=== PATIENT | female | born 1940 | race Caucasian/White ===

== ENCOUNTER 2017-02-20 08:18 | Emergency (ER) | payer MEDICARE ==
[2017-02-20 08:46] VITALS: BP 173/77
--- NOTE | 2017-02-20 08:55 | UC ---
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 Negative: Fever, Chills, Pleuritic Chest Pain, Wheezing, Hemoptysis, Dizziness, Calf Swelling, Edema, URI, Nasal Congestion, Hoarseness, Sinus Discomfort - Allergies/Home Medications Allergies/Adverse Reactions: Allergies Allergy/AdvReac Type Severity Reaction Status Date / Time Atorvastatin [From Lipitor] Allergy Unknown REDNESS IN Verified 02/20/17 08:28 FACE Diltiazem Allergy Unknown SEVERE Verified 02/20/17 08:28 MUCLE ACHES Triamterene Allergy Unknown Unknown Verified 02/20/17 08:28 Reaction Details Levofloxacin [From Levaquin] Allergy Unknown Verified 02/20/17 08:28 Reaction Details Nitroglycerin Allergy Tachycardia Verified 02/20/17 08:28 Oxycodone Allergy SEVERE Verified 02/20/17 08:28 VOMITING Home Medications: Home Medications Ibuprofen TAB* [Advil TAB*] 200 mg PO Q6H PRN 02/20/17 [History Confirmed ] PMH/Surg Hx/FS Hx/Imm Hx Previously Healthy: No - LUPUS Cardiovascular History: Hypertension, Congestive Heart Failure, Other - valvular heart disease Other Cardiovascular History: valvular heart disease Respiratory History: Bronchitis - Surgical History Surgical History: Yes Surgery Procedure, Year, and Place: Hysterectomy, . Cesarian section, . Choleycystectomy, , [facility]. Urethral stretch procedure, . FACE (ABOVE EYEBROW & NOSE) AND LEG- SKIN CANCER REMOVED. HX LUPUS - Family History Known Family History: Positive: Cardiac Disease, Hypertension, Other - strong FHx of LUPUS - Social History Alcohol Use: None Substance Use Type: None Smoking Status (MU): Former Smoker Have You Smoked in the Last Year: No When Did the Patient Quit Smoking/Using Tobacco: 30 YRS AGO - Immunization History Most Recent Influenza Vaccination: DOES NOT TAKE IT. Most Recent Tetanus Shot: allergy to Most Recent Pneumonia Vaccination: 2009 Review of Systems Constitutional: Negative Skin: Negative Eyes: Negative ENT: Nasal Discharge, Sinus Congestion Respiratory: Shortness Of Breath, Cough Cardiovascular: Negative Gastrointestinal: Abdominal Pain - with cough Genitourinary: Negative Motor: Negative Neurovascular: Negative Musculoskeletal: Arthralgia, Myalgia, Other: - chronic neuropathic pain x 3 yrs Neurological: Negative Psychological: Negative Is Patient Immunocompromised?: No All Other Systems Reviewed And Are Negative: Yes Physical Exam Triage Information Reviewed: Yes Appearance: Well-Appearing, No Pain Distress, Well-Nourished Vital Signs: Initial Vital Signs Temp 98.2 F 02/20/17 08:32 Pulse 74 02/20/17 08:32 Resp 16 02/20/17 08:32 BP 173/77 02/20/17 08:32 Pulse Ox 98 02/20/17 08:32 Vital Signs Reviewed: Yes Eyes: Positive: Conjunctiva Clear ENT: Positive: Normal ENT inspection Neck: Positive: Supple, Nontender, No Lymphadenopathy Respiratory: Positive: Lungs clear, Normal breath sounds, No respiratory distress, No accessory muscle use Cardiovascular: Positive: RRR, No Murmur Abdomen Description: Positive: Nontender, No Organomegaly Musculoskeletal: Positive: ROM Intact, No Edema Neurological: Positive: Alert Psychological Exam: Normal Skin Exam: Normal UC Diagnostic Evaluation - Laboratory O2 Sat by Pulse Oximetry: 98 - normal/not hypoxic - Radiology Xray Interpretation: No Acute Changes - HYPERINFLATION, CONSISTENT WITH COPD. NO ACTIVE CARDIOPULMONARY DISEASE Radiology Interpretation Completed By: Radiologist Respiratory Course/Dx - Differential Dx/Diagnosis Provider Diagnoses: acute bronchitis Discharge - Discharge Plan Condition: Stable Disposition: HOME Patient Education Materials: Acute Bronchitis (ED) Referrals: Joy Childers MD [Primary Care Provider] - 4 Days (if not better) Additional Instructions: recheck for new or worsening symptoms
--- NOTE | 2017-02-20 09:16 | RAD ---
HISTORY: Cough COMPARISONS: March 26, 2016 VIEWS: 4: Frontal dual-energy and lateral views of the chest. FINDINGS: CARDIOMEDIASTINAL SILHOUETTE: The cardiomediastinal silhouette is normal. LÓPEZ: The lópez are normal. PLEURA: The costophrenic angles are sharp. No pleural abnormalities are noted. LUNG PARENCHYMA: There is hyperinflation with flattening of the diaphragm and expansion of the AP diameter of the chest. ABDOMEN: The upper abdomen is clear. There is no subphrenic gas. BONES AND SOFT TISSUES: Degenerative changes are noted along the spine. OTHER: None. IMPRESSION: HYPERINFLATION, CONSISTENT WITH COPD. NO ACTIVE CARDIOPULMONARY DISEASE.
== END 2017-02-20 09:38 | disposition home or self-care (01) ==
LOC: UCCORT 08:18
DX: J20.9 Acute bronchitis, unspecified (principal)
CPT/HCPCS: 71020; 99212; G0463

== ENCOUNTER 2017-10-05 14:50 | Emergency (ER) | payer MEDICARE ==
[2017-10-05 15:14] VITALS: BP 132/62
[2017-10-05] MEDS ORDERED: Albuterol 2.5 MG/3 ML NEB.SOL* (0.083%) INH ONE (15:17)
--- NOTE | 2017-10-05 15:17 | UC ---
General HPI - HPI Summary HPI Summary: cough since last pm. denies cp, sob, wheezing and fever. denies hx lung disease. was dx with bronchitis yesterday. he has asthma and is on an antibiotic. - History of Current Complaint Chief Complaint: UCRespiratory Stated Complaint: COUGH Time Seen by Provider: 10/05/17 15:04 Hx Obtained From: Patient Onset/Duration: Gradual Onset Aggravating: nothing Alleviating: nothing Associated Signs & Symptoms: Positive: Cough - Allergy/Home Medications Allergies/Adverse Reactions: Allergies Allergy/AdvReac Type Severity Reaction Status Date / Time oxycodone Allergy Severe Vomiting Verified 10/05/17 15:02 atorvastatin [From Lipitor] Allergy See Comment Verified 10/05/17 15:02 diltiazem Allergy Muscle Ache Verified 10/05/17 15:02 levofloxacin [From Levaquin] Allergy Unknown Verified 10/05/17 15:02 Reaction Details nitroglycerin Allergy Tachycardia Verified 10/05/17 15:02 triamterene Allergy Unknown Verified 10/05/17 15:02 Reaction Details Home Medications: Home Medications Omeprazole CAP* [Prilosec CAP* 20 MG] 1 cap DAILY 10/05/17 [History Confirmed ] Potassium Chlor TAB* [Klor Con ER TAB 10 MEQ*] 10 meq WEEKLY PRN 10/05/17 [ History Confirmed 10/05/17] PMH/Surg Hx/FS Hx/Imm Hx - Additional Past Medical History Additional PMH: Lupus, skin CA, chronic pain Endocrine History: Dyslipidemia Cardiovascular History: Cardiac Disease, Hypertension - Surgical History Surgical History: Yes Surgery Procedure, Year, and Place: Hysterectomy, . Cesarian section, . Choleycystectomy, , [facility]. Urethral stretch procedure, . FACE (ABOVE EYEBROW & NOSE) AND LEG- SKIN CANCER REMOVED. HX LUPUS - Family History Known Family History: Positive: Cardiac Disease, Hypertension, Other - strong FHx of LUPUS - Social History Occupation: Retired Lives: With Family Alcohol Use: None Substance Use Type: None Smoking Status (MU): Former Smoker Have You Smoked in the Last Year: No When Did the Patient Quit Smoking/Using Tobacco: 30 YRS AGO - Immunization History Most Recent Influenza Vaccination: DOES NOT TAKE IT. Most Recent Tetanus Shot: allergy to Most Recent Pneumonia Vaccination: 2009 Vaccination Up to Date: Yes Review of Systems Constitutional: Negative Skin: Negative Eyes: Negative ENT: Negative Respiratory: Cough Cardiovascular: Negative Gastrointestinal: Negative Genitourinary: Negative Motor: Negative Neurovascular: Negative Musculoskeletal: Other: - chronic pain Neurological: Negative Psychological: Negative Is Patient Immunocompromised?: No All Other Systems Reviewed And Are Negative: Yes Physical Exam Triage Information Reviewed: Yes Appearance: Well-Appearing Vital Signs Reviewed: Yes Eyes: Positive: Conjunctiva Clear ENT: Positive: Pharyngeal erythema, Nasal congestion, Nasal drainage - clear, TMs normal Neck: Positive: Supple, Nontender, No Lymphadenopathy, Other: - no jvd Respiratory: Positive: Lungs clear, Decreased breath sounds, Other: - bronchospastic cough Cardiovascular: Positive: RRR, No Murmur Abdomen Description: Positive: Nontender, No Organomegaly, Soft Bowel Sounds: Positive: Present Musculoskeletal: Positive: ROM Intact Neurological: Positive: Alert Psychological: Positive: Age Appropriate Behavior Skin Exam: Normal Re-Evaluation - Re-Evaluation Second Eval Re-Evaluation Time: 15:50 Change: Improved - less cough, aeration improved Course/Dx - Course Course Of Treatment: pt improved with bronchodiloator so will resume that. given hx of comorbidities and spouse currenly ill, will cover with a zpak. - Differential Dx - Multi-Symptom Provider Diagnoses: bronchitis. bronchospasm Discharge - Sign-Out/Discharge Documenting (check all that apply): Discharge/Admit/Transfer - Discharge Plan Condition: Stable Disposition: HOME Prescriptions: Azithromycin TAB* [Zithromax TAB (Z-JAMIL) 250 mg #6 tabs] 2 tab PO .TODAY, THEN 1 DAILY #1 jamil Patient Education Materials: Acute Bronchitis (ED), Bronchospasm (ED) Referrals: Joy Childers MD [Primary Care Provider] - 5 Days Additional Instructions: use the albuterol inhaler 2 puffs every 6 hours - Billing Disposition and Condition Condition: STABLE Disposition: HOME
[2017-10-05] MEDS ORDERED: Albuterol HFA INHALER* 8 gm MDI INH ONE (15:52)
== END 2017-10-05 16:18 | disposition home or self-care (01) ==
LOC: UCCORT 14:50
DX: J40 Bronchitis, not specified as acute or chronic (principal); J98.01 Acute bronchospasm; G89.29 Other chronic pain; I10 Essential (primary) hypertension; M32.9 Systemic lupus erythematosus, unspecified; Z88.1 Allergy status to other antibiotic agents; Z88.5 Allergy status to narcotic agent; Z88.7 Allergy status to serum and vaccine; Z88.8 Allergy status to other drugs, medicaments and biological substances; Z87.891 Personal history of nicotine dependence
CPT/HCPCS: 99213; A9270-GY; G0463

== ENCOUNTER 2018-03-10 14:50 | Emergency (ER) | payer MEDICARE ==
[2018-03-10 15:07] VITALS: BP 192/89
--- NOTE | 2018-03-10 16:10 | UC ---
Respiratory Complaint HPI - HPI Summary HPI Summary: Per office services associate "PRODUCTIVE COUGH, CHEST CONGESTION, STATES SHE CAN FEEL THAT SHE IS RATTLING WHEN SHES BREATHING X3 DAYS HEADACHE TODAY THAT ACHES INTO EYES AND TEETH" -She has some wheezing. Denies history of COPD or asthma. She's never needed inhalers except for an acute illness such as today's in the past. She does not smoke. Denies fevers. She does have some mild dysuria. She does have history of UTIs and sees a specialist for this. She has mild pain over her face. - History of Current Complaint Chief Complaint: UCGeneralIllness Stated Complaint: COUGH,CHEST CONGESTION Time Seen by Provider: 03/10/18 16:03 Pain Intensity: 5 - Allergies/Home Medications Allergies/Adverse Reactions: Allergies Allergy/AdvReac Type Severity Reaction Status Date / Time oxycodone Allergy Severe Vomiting Verified 10/05/17 15:02 atorvastatin [From Lipitor] Allergy See Comment Verified 10/05/17 15:02 diltiazem Allergy Muscle Ache Verified 10/05/17 15:02 levofloxacin [From Levaquin] Allergy Unknown Verified 10/05/17 15:02 Reaction Details nitroglycerin Allergy Tachycardia Verified 10/05/17 15:02 triamterene Allergy Unknown Verified 10/05/17 15:02 Reaction Details Home Medications: Home Medications Duloxetine HCl 30 mg PO DAILY 03/10/18 [History Confirmed 03/10/18] Guaifenesin/Dextromethorphan [Robitussin Iyfgk-Pfusd-Xbww Dm] 1 each PO DAILY [History Confirmed 03/10/18] PMH/Surg Hx/FS Hx/Imm Hx Previously Healthy: Yes - Surgical History Surgical History: Yes Surgery Procedure, Year, and Place: Hysterectomy, . Cesarian section, . Choleycystectomy, , [facility]. Urethral stretch procedure, . FACE (ABOVE EYEBROW & NOSE) AND LEG- SKIN CANCER REMOVED. HX LUPUS - Family History Known Family History: Positive: Cardiac Disease, Hypertension, Other - strong FHx of LUPUS - Social History Alcohol Use: None Substance Use Type: None Smoking Status (MU): Former Smoker Have You Smoked in the Last Year: No When Did the Patient Quit Smoking/Using Tobacco: 30 YRS AGO - Immunization History Most Recent Influenza Vaccination: DOES NOT TAKE IT. Most Recent Tetanus Shot: allergy to Most Recent Pneumonia Vaccination: 2010 Vaccination Up to Date: Yes Review of Systems Constitutional: Fatigue Skin: Negative Eyes: Negative ENT: Nasal Discharge, Sinus Congestion, Sinus Pain/Tenderness Respiratory: Cough Cardiovascular: Negative Gastrointestinal: Negative Genitourinary: Dysuria Motor: Negative Neurovascular: Negative Musculoskeletal: Negative Neurological: Negative Psychological: Negative Is Patient Immunocompromised?: No All Other Systems Reviewed And Are Negative: Yes Physical Exam Triage Information Reviewed: Yes Appearance: Well-Appearing, No Pain Distress, Well-Nourished - Uses walker Vital Signs: Initial Vital Signs Temp 99.3 F 03/10/18 14:59 Pulse 75 03/10/18 14:59 Resp 18 03/10/18 14:59 BP 192/89 03/10/18 14:59 Pulse Ox 98 03/10/18 14:59 Vital Signs Reviewed: Yes Eye Exam: Normal ENT: Positive: Nasal congestion, Nasal drainage, TMs normal. Negative: Sinus tenderness Neck exam: Normal Neck: Positive: Supple, Nontender, No Lymphadenopathy Respiratory: Positive: No respiratory distress, No accessory muscle use, Decreased breath sounds, Wheezing. Negative: Crackles, Rhonchi, Stridor Cardiovascular: Positive: RRR Abdomen Description: Positive: Nontender, Soft Neurological Exam: Normal Psychological Exam: Normal Skin Exam: Normal UC Diagnostic Evaluation - Laboratory O2 Sat by Pulse Oximetry: 98 Respiratory Course/Dx - Course Course Of Treatment: BP elevated bc she is sick and doesnt feel well. UA dip b/ c of her request, + 1 LE. minimal mild dysuria. follows with . await cx. she is being treated w/ amox for resp sx. amox and alb for bronchitis - Differential Dx/Diagnosis Differential Diagnosis/HQI/PQRI: Bronchitis, Sinusitis, Other - dysuria Provider Diagnoses: Bronchitis, dysuria Discharge - Sign-Out/Discharge Documenting (check all that apply): Patient Departure All imaging exams completed and their final reports reviewed: No Studies - Discharge Plan Condition: Stable Disposition: HOME Prescriptions: Albuterol HFA INHALER* [Ventolin HFA Inhaler*] 2 puff INH Q4H PRN #1 mdi PRN Reason: Cough Amoxicillin PO (*) [Amoxicillin 875 MG (*)] 875 mg PO BID #20 tab Patient Education Materials: Acute Bronchitis (ED) Referrals: Joy Childers MD [Primary Care Provider] - Additional Instructions: -Make sure to take a probiotic daily while on antibiotics to help prevent a potential complication of antibiotic use called c diff. Some well known brands that can be found OTC are florastor, align and SoapBox Soaps. Make sure to complete the entire prescription unless advised otherwise by your health care provider. -Urine is not obviously positive for an infection, but it will be sent for a culture. You can call for the results in 2-3 days. The amoxicillin would likely cover a UTI if you do have one. - Billing Disposition and Condition Condition: STABLE Disposition: Home
--- NOTE | 2018-03-12 08:10 | UC ---
- Progress Note Progress Note: Urine culture final report with strep group B Patient on amoxicillin Sensitivity usually not done routinely. No change Discharge - Sign-Out/Discharge Documenting (check all that apply): Post-Discharge Follow Up All imaging exams completed and their final reports reviewed: No Studies - Discharge Plan Condition: Stable Disposition: HOME Prescriptions: Albuterol HFA INHALER* [Ventolin HFA Inhaler*] 2 puff INH Q4H PRN #1 mdi PRN Reason: Cough Amoxicillin PO (*) [Amoxicillin 875 MG (*)] 875 mg PO BID #20 tab Patient Education Materials: Acute Bronchitis (ED) Referrals: Joy Childers MD [Primary Care Provider] - Additional Instructions: -Make sure to take a probiotic daily while on antibiotics to help prevent a potential complication of antibiotic use called c diff. Some well known brands that can be found OTC are florastor, align and [employer]. Make sure to complete the entire prescription unless advised otherwise by your health care provider. -Urine is not obviously positive for an infection, but it will be sent for a culture. You can call for the results in 2-3 days. The amoxicillin would likely cover a UTI if you do have one. - Billing Disposition and Condition Condition: STABLE Disposition: Home
== END 2018-03-10 16:39 | disposition home or self-care (01) ==
LOC: UCCORT 14:50
DX: J40 Bronchitis, not specified as acute or chronic (principal); R30.0 Dysuria; Z79.2 Long term (current) use of antibiotics; Z85.828 Personal history of other malignant neoplasm of skin; Z87.891 Personal history of nicotine dependence; Z87.440 Personal history of urinary (tract) infections; Z88.1 Allergy status to other antibiotic agents; Z88.5 Allergy status to narcotic agent; Z88.8 Allergy status to other drugs, medicaments and biological substances
CPT/HCPCS: 81003; 87077; 87086; 99212; G0463

== ENCOUNTER 2018-03-26 12:49 | Emergency (ER) | payer MEDICARE ==
--- OUTSIDE RECORDS SUMMARY | 2018-03-26 13:18 | XMS REPORT | Continuity of Care Document ---
:1940 External Reference #:[id number] Author Name Amrit Quinn M.D. Address [address] [place] [address] Care Team Providers Name Role Phone Joy Childers M.D. Primary Care Physician Unavailable Payers Type Date Identification Numbers Payment Provider Subscriber Policy Number: [id number] Medicare - [facility] Brenda Carias PayID: [id number] [address] [place] [address] Policy Number: [id number] [facility] Brenda Carias PayID: [id number] [address] [place] [address] Advance Directives Description No Information Available Problems Date Description Provider Status Onset: Basal cell carcinoma of skin Active Onset: Seasonal allergy Active Onset: Simple renal cyst Active Onset: Essential hypertension Active Onset: Calcaneal spur Active Onset: Arthritis Active Onset: 08/25/2017 Squamous blepharitis Amrit Quinn M.D. Active Onset: 07/23/2015 Vitreous degeneration Sherri Mcginnis O.D. Active Onset: 07/23/2015 Combined form of senile cataract Sherri Mcginnis O.D. Active Onset: 03/24/2015 Nuclear senile cataract Sherri Mcginnis O.D. Active Onset: 03/24/2015 Angular blepharoconjunctivitis Sherri Mcginnis O.D. 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 dryness & irritation Erythromycin 09/15 Active Ointment 5mg/GM 2Tube Apply to [facility] /2017 s all four Arleo, lids at M.D. bedtime for 2 weeks, then discontinue . Can use as needed for Blepharitis flare ups Labetalol HCL Active Tablets 100mg Unknown /0000 Verapamil HCL ER Active Caps ER 120mg Unknown /0000 24HR Calcium 500 Active Tablets 500-250-2 500 MG bid Unknown 0000 00mg-mg-U nit Duloxetine HCL Active Caps DR 20mg twice a day Unknown /0000 Part Amlodipine Active Tablets 2.5mg every day Unknown Besylate /0000 Omeprazole Active Capsules 10mg Unknown /0000 DR Tums Active Chewtabs 500mg 1 by mouth Unknown /0000 every day Aspirin Active Chewtabs 81mg Unknown /0000 Artificial Tears Active Solution 0.1-0.3% as needed Unknown /0000 Erythromycin 07/22 Hx Ointment 5mg/GM 1Tube apply thin H10.523 Sherri Crabtree /2015 strip to [place], - all four O.D. 08/24 margins x every night Erythromycin 03/24 Hx Ointment 5mg/GM 1Tube apply thin H10.523 Sherri Crabtree /2014 strip to [place] - all four O.D. 07/21 margins x every night for 3 weeks Hydrochlorothiazid 00/00 Hx Capsules 12.5mg Unknown e /0000 - 07/21 Gabapentin 00/00 Hx Capsules 100mg Unknown /0000 - 03/23 Morphine Sulfate 00 Hx Caps ER 10mg Unknown ER /0000 24HR - 12/22 Senna Hx Capsules 8.6mg twice a day Unknown /0000 - 08/24 Prednisone Hx Tablets 50mg 1 dose per Unknown / month - 08/23 Gabapentin Hx Unknown / - 08/23 Amoxicillin/Clavul Hx Tablets 875-125mg Unknown anate Potassium /0000 - 08/24 Immunizations Description No Information Available Vital Signs Description No Information Available Results Description No Information Available Procedures Date Code Description Status 08/25/2017 89794 Est Patient Comprehensive Exam Completed 01/23/2016 10942 Est Patient Comprehensive Exam Completed 07/23/2015 52646 Est Patient Comprehensive Exam Completed 03/24/2015 24310 Est Patient Intermediate Exam Completed 07/22/2014 86826 Est Patient Comprehensive Exam Completed 12/10/2013 48610 Est Patient Comprehensive Exam Completed 07/10/2012 57822 Est Patient Comprehensive Exam Completed 02/10/2011 23714 Est Patient Intermediate Exam Completed 03/12/2010 17385 Determination Of Refractive State Completed 03/12/2010 21079 Est Patient Comprehensive Exam Completed 01/07/2009 34358 Est Patient Comprehensive Exam Completed 10/19/2006 59449 Est Patient Intermediate Exam Completed 01/24/2006 39456 Est Patient Comprehensive Exam Completed 01/06/2006 98622 Est Patient Intermediate Exam Completed 02/12/2004 40141 Determination Of Refractive State Completed 02/12/2004 06883 Est Patient Comprehensive Exam Completed Encounters Type Date Location Provider Dx Diagnosis Office Visit 02/17/2011 Sherri Parra 372.30 Conjunctivitis Unspec 10:10a edel COREY O.D. Office Visit 11/29/2007 Daniel Parra, 373.00 Blepharitis Unspec 10:45a edel COREY M.D. Plan of Treatment 03/24/2018 - Amrit Quinn M.D.H25.813 Combined forms of age-related cataract , bilateralComments:Smoking can increase the risk of developing or worsening any eye related disease, as well as affect your overall health. If you are a smoker, we strongly recommend that you quit.If you are not a smoker, we strongly recommend that you do not start. You have been diagnosed with cataracts. If you are happy with your vision as it is now, then we will see you at your next scheduled appointment. If you feel like your vision is getting worse before your scheduled appointment, please call [facility] at [phone].Follow up:6 Month Follow Up Diagnostic Refraction You can expect to have your eyes dilated at your next visit. If Dr. Quinn orders any additional testing, it may require extra time. We recommend that you bring sunglasses, as dilation drops often make you light sensitive until they wear off. We always recommendyou bring someone to drive you home if you are uncomfortable driving with your eyes dilated. If you have any questions before your next visit, feel free to call our office at .B85.690 Vitreous degeneration, bilateralComments:You have a Posterior Vitreous Detachment. If you have any changes in your floaters or flashing lights, please contact this office.
[2018-03-26 13:26] VITALS: BP 179/92
--- NOTE | 2018-03-26 13:47 | UC ---
Complaint Female HPI - HPI Summary HPI Summary: 77 year old female with onset of suprapubic "pressure", dysuria, frequency, and urgency this morning. Denies fever, chills, back/flank pain, nausea, vomiting, hematuria, or vaginal discharge. - History Of Current Complaint Chief Complaint: UCGU Stated Complaint: URINARY Time Seen by Provider: 03/26/18 13:16 Hx Obtained From: Patient Onset/Duration: Gradual Onset, Lasting Hours Severity Currently: Moderate Pain Intensity: 5 Character: Burning Aggravating Factor(s): Urination Alleviating Factor(s): Nothing Associated Signs And Symptoms: Negative: Fever, Back Pain, Vaginal Bleeding/ Discharge, Nausea, Vomiting(# Of Episodes =) - Allergies/Home Medications Allergies/Adverse Reactions: Allergies Allergy/AdvReac Type Severity Reaction Status Date / Time atorvastatin [From Lipitor] Allergy See Comment Verified 03/26/18 13:22 diltiazem Allergy Muscle Ache Verified 03/26/18 13:22 levofloxacin [From Levaquin] Allergy Unknown Verified 03/26/18 13:22 Reaction Details nitroglycerin Allergy Tachycardia Verified 03/26/18 13:22 triamterene Allergy Unknown Verified 03/26/18 13:22 Reaction Details oxycodone AdvReac Severe Vomiting Verified 03/26/18 13:22 PMH/Surg Hx/FS Hx/Imm Hx - Additional Past Medical History Additional PMH: SLE, fibromyalgia Endocrine History: Dyslipidemia Cardiovascular History: Cardiac Disease, Hypertension, Other - tachy arrythmia - Surgical History Surgical History: Yes Surgery Procedure, Year, and Place: Hysterectomy, . Cesarian section, . Choleycystectomy, , [facility]. Urethral stretch procedure, . FACE (ABOVE EYEBROW & NOSE) AND LEG- SKIN CANCER REMOVED. HX LUPUS - Family History Known Family History: Positive: Cardiac Disease, Hypertension, Other - strong FHx of LUPUS - Social History Occupation: Retired Lives: With Family Alcohol Use: None Substance Use Type: None Smoking Status (MU): Former Smoker Have You Smoked in the Last Year: No When Did the Patient Quit Smoking/Using Tobacco: ~1984 - Immunization History Most Recent Influenza Vaccination: DOES NOT TAKE IT. Most Recent Tetanus Shot: allergy to Most Recent Pneumonia Vaccination: 2009 Vaccination Up to Date: Yes Review of Systems All Other Systems Reviewed And Are Negative: Yes Constitutional: Positive: Negative Gastrointestinal: Positive: Abdominal Pain - Suprapubic Genitourinary: Positive: Dysuria, Frequency, Urgency Is Patient Immunocompromised?: No Physical Exam Triage Information Reviewed: Yes Appearance: No Pain Distress, Well-Nourished, Ill-Appearing - Chronically Vital Signs: Initial Vital Signs Temp 98.5 F 03/26/18 13:20 Pulse 76 03/26/18 13:20 Resp 18 03/26/18 13:20 BP 179/92 03/26/18 13:20 Pulse Ox 97 03/26/18 13:20 Vital Signs Reviewed: Yes Respiratory: Positive: Lungs clear, Normal breath sounds, No respiratory distress Cardiovascular: Positive: RRR, No Murmur Abdomen Description: Positive: No Organomegaly, Soft, Other: - Mild suprapubic tenderness. Negative: CVA Tenderness (R), CVA Tenderness (L), Distended, Guarding Neurological: Positive: Alert Skin Exam: Normal Diagnostics - Laboratory Diagnostic Studies Completed/Ordered: POC UA 2+ protein, 3+ blood, 3+ leukocyte , urine culture pending Complaint Female Dx - Course Course Of Treatment: 77 year old female with onset of suprapubic "pressure", dysuria, frequency, and urgency this morning. Afebrile. POC UA shows 2+ protein , 3+ blood, 3+ leukocyte esterase. Urine culture pending. Will start 5 day course nitrofuratoin BID pending culture results. She is to follow up with PCP in 5 days if symptoms persist. Warning symptoms reviewed. Verbalizes understanding and agrees with POC. - Differential Dx/Diagnosis Provider Diagnoses: UTi Discharge - Sign-Out/Discharge Documenting (check all that apply): Patient Departure All imaging exams completed and their final reports reviewed: No Studies - Discharge Plan Condition: Stable Disposition: HOME Prescriptions: Nitrofurantoin Monohyd/M-Cryst [Macrobid 100 mg Capsule] 100 mg PO BID #10 cap Patient Education Materials: Urinary Tract Infection in Women (ED) Referrals: Joy Childers MD [Primary Care Provider] - 5 Days (If no improvement in symptoms ) Additional Instructions: Your urine test performed in the clinic today is suggestive of a urinary tract infection. We will send the urine for culture to see what bacteria grow out and to make sure the antibiotic you were prescribed is appropriate. This test will take 48-72 hours. We will contact you if there is any need to change your treatment plan. Start nitrofurantoin 1 tab twice a day for 5 days. Drink plenty of fluids. Be sure to use the bathroom frequently and to completely empty your bladder with each void. Follow up with your primary care provider in 5 days if symptoms do not improve. Seek immediate medical attention in the emergency room if you develop fever greater than 100.5 F, worsening abdominal pain, persistent vomiting, or any worsening of symptoms. - Billing Disposition and Condition Condition: STABLE Disposition: Home - Attestation Statements Provider Attestation: Per institutional requirements, I have reviewed the chart, however, I was not consulted specifically or made aware of this patient by the midlevel provider. I did not personally evaluate, interact with , or disposition this patient.
--- NOTE | 2018-03-28 18:55 | UC ---
- Progress Note Progress Note: + Strep Group B On Macrobid await culture no change marionj 03/28/2018 Discharge - Sign-Out/Discharge Documenting (check all that apply): Post-Discharge Follow Up All imaging exams completed and their final reports reviewed: No Studies - Discharge Plan Condition: Stable Disposition: HOME Prescriptions: Nitrofurantoin Monohyd/M-Cryst [Macrobid 100 mg Capsule] 100 mg PO BID #10 cap Patient Education Materials: Urinary Tract Infection in Women (ED) Referrals: Joy Childers MD [Primary Care Provider] - 5 Days (If no improvement in symptoms ) Additional Instructions: Your urine test performed in the clinic today is suggestive of a urinary tract infection. We will send the urine for culture to see what bacteria grow out and to make sure the antibiotic you were prescribed is appropriate. This test will take 48-72 hours. We will contact you if there is any need to change your treatment plan. Start nitrofurantoin 1 tab twice a day for 5 days. Drink plenty of fluids. Be sure to use the bathroom frequently and to completely empty your bladder with each void. Follow up with your primary care provider in 5 days if symptoms do not improve. Seek immediate medical attention in the emergency room if you develop fever greater than 100.5 F, worsening abdominal pain, persistent vomiting, or any worsening of symptoms. - Billing Disposition and Condition Condition: STABLE Disposition: Home
--- NOTE | 2018-03-29 06:59 | UC ---
- Progress Note Progress Note: prelim urine + citrobacter, strep Group B Pt on Macrobid await sensitivity no change amando 03/29/18 Discharge - Sign-Out/Discharge Documenting (check all that apply): Post-Discharge Follow Up All imaging exams completed and their final reports reviewed: No Studies - Discharge Plan Condition: Stable Disposition: HOME Prescriptions: Nitrofurantoin Monohyd/M-Cryst [Macrobid 100 mg Capsule] 100 mg PO BID #10 cap Patient Education Materials: Urinary Tract Infection in Women (ED) Referrals: Joy Childers MD [Primary Care Provider] - 5 Days (If no improvement in symptoms ) Additional Instructions: Your urine test performed in the clinic today is suggestive of a urinary tract infection. We will send the urine for culture to see what bacteria grow out and to make sure the antibiotic you were prescribed is appropriate. This test will take 48-72 hours. We will contact you if there is any need to change your treatment plan. Start nitrofurantoin 1 tab twice a day for 5 days. Drink plenty of fluids. Be sure to use the bathroom frequently and to completely empty your bladder with each void. Follow up with your primary care provider in 5 days if symptoms do not improve. Seek immediate medical attention in the emergency room if you develop fever greater than 100.5 F, worsening abdominal pain, persistent vomiting, or any worsening of symptoms. - Billing Disposition and Condition Condition: STABLE Disposition: Home
== END 2018-03-26 13:59 | disposition home or self-care (01) ==
LOC: UCCORT 12:49
DX: N39.0 Urinary tract infection, site not specified (principal); B96.89 Other specified bacterial agents as the cause of diseases classified elsewhere; B95.1 Streptococcus, group B, as the cause of diseases classified elsewhere; Z88.5 Allergy status to narcotic agent; Z88.8 Allergy status to other drugs, medicaments and biological substances; I10 Essential (primary) hypertension; Z85.828 Personal history of other malignant neoplasm of skin; Z87.891 Personal history of nicotine dependence
CPT/HCPCS: 81003; 87077; 87086; 87186; 99212; G0463

== ENCOUNTER 2018-05-18 08:50 | Emergency (ER) | payer MEDICARE ==
[2018-05-18 10:31] VITALS: BP 150/76
--- NOTE | 2018-05-18 11:02 | ED ---
GI/ HPI - HPI Summary HPI Summary: 77 yr old female with the complaint of dysuria, frequency of urination, supra pubic pressure. Onset of symptoms was several days ago. She was treated for uti with macrobid in March, but not completely better. no NV. No fever. Symptoms are moderate. - History of Current Complaint Chief Complaint: UCGU Time Seen by Provider: 05/18/18 10:30 Stated Complaint: URINARY Pain Intensity: 4 - Allergy/Home Medications Allergies/Adverse Reactions: Allergies Allergy/AdvReac Type Severity Reaction Status Date / Time atorvastatin [From Lipitor] Allergy See Comment Verified 05/18/18 10:24 diltiazem Allergy Muscle Ache Verified 05/18/18 10:24 levofloxacin [From Levaquin] Allergy Unknown Verified 05/18/18 10:24 Reaction Details nitroglycerin Allergy Tachycardia Verified 05/18/18 10:24 triamterene Allergy Unknown Verified 05/18/18 10:24 Reaction Details oxycodone AdvReac Severe Vomiting Verified 05/18/18 10:24 PMH/Surg Hx/FS Hx/Imm Hx Endocrine/Hematology History: Reports: Hx Systemic Lupus Erythematosus Denies: Hx Diabetes Cardiovascular History: Reports: Hx Angina, Hx Hypercholesterolemia, Hx Hypertension, Hx Valvular Heart Disease - TR, Aortic Sclerosis, Other Cardiovascular Problems/Disorders - PROLAPSED HEART VALVE Denies: Hx Coronary Artery Disease, Hx Myocardial Infarction, Hx Pacemaker/ ICD Respiratory History: Reports: Hx Asthma Denies: Hx Chronic Obstructive Pulmonary Disease (COPD) GI History: Reports: Hx Gastroesophageal Reflux Disease, Hx Hiatal Hernia History: Denies: Hx Dialysis, Hx Renal Disease Musculoskeletal History: Reports: Hx Back Problems - lumbar radiculopathy, Hx Bursitis Denies: Hx Osteoporosis Sensory History: Reports: Hx Cataracts, Hx Contacts or Glasses Denies: Hx Hearing Aid Opthamlomology History: Reports: Hx Cataracts, Hx Contacts or Glasses Neurological History: Reports: Other Neuro Impairments/Disorders - Lupus Psychiatric History: Denies: Hx Panic Disorder - Cancer History Cancer Type, Location and Year: skin cancer - Surgical History Surgery Procedure, Year, and Place: Hysterectomy, . Cesarian section, . Choleycystectomy, , [facility]. Urethral stretch procedure, . FACE (ABOVE EYEBROW & NOSE) AND LEG- SKIN CANCER REMOVED. HX LUPUS Hx Anesthesia Reactions: No Infectious Disease History: No Infectious Disease History: Denies: Traveled Outside the [place] in Last 30 Days - Family History Known Family History: Positive: Cardiac Disease, Hypertension, Other - strong FHx of LUPUS - Social History Alcohol Use: None Substance Use Type: Reports: None Smoking Status (MU): Former Smoker Have You Smoked in the Last Year: No Review of Systems Constitutional: Negative Positive: dysuria, frequency All Other Systems Reviewed And Are Negative: Yes Physical Exam Triage Information Reviewed: Yes Vital Signs On Initial Exam: Initial Vitals Temp Pulse Resp BP Pulse Ox 97.8 F 71 16 150/76 96 05/18/18 10:25 05/18/18 10:25 05/18/18 10:25 05/18/18 10:25 05/18/18 10:25 Vital Signs Reviewed: Yes Appearance: Positive: Well-Appearing, No Pain Distress Skin: Positive: Warm, Skin Color Reflects Adequate Perfusion Head/Face: Positive: Normal Head/Face Inspection Eyes: Positive: EOMI ENT: Positive: Normal ENT inspection Neck: Positive: Nontender Respiratory/Lung Sounds: Positive: Clear to Auscultation, Breath Sounds Present Cardiovascular: Positive: RRR. Negative: Murmur Abdomen Description: Positive: Nontender. Negative: CVA Tenderness (R), CVA Tenderness (L) Musculoskeletal: Positive: Strength/ROM Intact Neurological: Positive: Sensory/Motor Intact, Alert, Oriented to Person Place, Time, CN Intact II-III, Normal Gait, Speech Normal Psychiatric: Positive: Normal - Dominique Coma Scale Best Eye Response: 4 - Spontaneous Best Motor Response: 6 - Obeys Commands Best Verbal Response: 5 - Oriented Coma Scale Total: 15 Diagnostics - Vital Signs Vital Signs Temp Pulse Resp BP Pulse Ox 05/18/18 10:25 97.8 F 71 16 150/76 96 - Laboratory Lab Results: Lab Results 05/18/18 Range/Units 10:40 POC Urine Color Yellow POC Urine Clarity Slightly cloudy POC Urine pH 7.0 (5-9) POC Ur Specif [place] 1.015 (1.010-1.030) POC Urine Protein Negative (Negative) POC Ur Glucose (UA) Negative (Negative) POC Urine Ketones Negative (Negative) POC Urine Blood Trace-lysed A (Negative) POC Urine Nitrite Negative (Negative) POC Urine Bilirubin Negative (Negative) POC Urine Urobilinogen 0.2 (Negative) POC U Leukocyte Esteras 2+ A (Negative) Lab Statement: Any lab studies that have been ordered have been reviewed, and results considered in the medical decision making process. GIGU Course/Dx - Course Course Of Treatment: 77 yr old female with UTI. Rx with keflex. - Diagnoses Provider Diagnoses: UTI (urinary tract infection), Hypertension Discharge - Sign-Out/Discharge Documenting (check all that apply): Patient Departure All imaging exams completed and their final reports reviewed: No Studies - Discharge Plan Condition: Good Disposition: HOME Prescriptions: Cephalexin CAP* [Keflex CAP*] 500 mg PO TID #30 cap Patient Education Materials: Urinary Tract Infection in Women (ED), Hypertension (ED) Referrals: Joy Childers MD [Primary Care Provider] - 2 Days - Billing Disposition and Condition Condition: GOOD Disposition: Home
== END 2018-05-18 11:18 | disposition home or self-care (01) ==
LOC: UCCORT 08:50
DX: B95.1 Streptococcus, group B, as the cause of diseases classified elsewhere (principal); Z88.1 Allergy status to other antibiotic agents; M32.9 Systemic lupus erythematosus, unspecified; N39.0 Urinary tract infection, site not specified; I10 Essential (primary) hypertension; Z88.8 Allergy status to other drugs, medicaments and biological substances; Z88.5 Allergy status to narcotic agent
CPT/HCPCS: 81003; 87086; 87088; 99212; G0463

== ENCOUNTER 2018-11-21 10:19 | Emergency (ER) | payer MEDICARE ==
--- OUTSIDE RECORDS SUMMARY | 2018-11-21 10:36 | XMS REPORT | Continuity of Care Document ---
:1940 External Reference #:[id number] Author Name Amrit Quinn M.D. Address [address] [facility] [address] Care Team Providers Name Role Phone Joy Childers M.D. Primary Care Physician Unavailable Payers Date Identification Numbers Payment Provider Subscriber Policy Number: [id number] Medicare - [facility] Brenda Bhatti Jv PayID: [id number] [address] [place] [address] Policy Number: [id number] [facility] Brenda Carias PayID: [id number] [address] [place] [address] Problems Active Problems Provider Date Basal cell carcinoma of skin Onset: Seasonal allergy Onset: Simple renal cyst Onset: Essential hypertension Onset: Calcaneal spur Onset: Arthritis Onset: Angular blepharoconjunctivitis Sherri Mcginnis O.D. Onset: 03/24/2015 Nuclear senile cataract Sherri Mcginnis O.D. Onset: 03/24/2015 Combined form of senile cataract Sherri Mcginnis O.D. Onset: 07/23/2015 Vitreous degeneration Sherri Mcginnis O.D. Onset: 07/23/2015 Squamous blepharitis Amrit Quinn M.D. 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 Work Status Retired ETOH Use Denies alcohol use Tobacco Use Start: Unknown End: Unknown Patient is a former smoker Recreational Drug Use Denies Drug Use Smoking Status Reviewed: 10/24/18 Patient is a former smoker Allergies, Adverse Reactions, Alerts Active Allergies Reaction Severity Comments Date TobraDex 03/24/2015 Oxycodone 08/25/2017 Medications Active Medications SIG Qnty Indications Ordering Provider Date Labetalol HCL Unknown 100mg Tablets Verapamil HCL ER Unknown 120mg Caps ER 24HR Duloxetine HCL twice a day Unknown 20mg Caps DR Cricket Omeprazole Unknown 10mg Capsules DR Hernandez 1 by mouth every Unknown 500mg Chewtabs day Aspirin Unknown 81mg Chewtabs Artificial Tears as needed Unknown 0.1-0.3% Solution Nystatin Unknown [id number]/GM Powder Fluconazole Unknown 150mg Tablets History Medications Systane Ultra Preservative One drop in each Amrit Crabtree 03/21/2018 - Free eye as needed for Otis Quinn 04/11/2018 0.4-0.3% Solution dryness & irritation Erythromycin as needed for 2Tubes Amrit Crabtree 09/15/2017 - 5mg/GM Ointment blepharitis Otis Quinn 10/06/2017 Erythromycin apply thin strip 1Tube H10.52 Sherri Crabtree 07/23/2015 - 5mg/GM Ointment to all four eyelid 3 [facility], 08/24/2017 margins x every O.D. night Erythromycin apply thin strip 1Tube H10.52 Sherri Crabtree 03/24/2015 - 5mg/GM Ointment to all four eyelid 3 , 07/22/2015 margins x every O.D. night for 3 weeks Hydrochlorothiazide Unknown - 12.5mg 07/22/2015 Capsules Gabapentin Unknown - 100mg Capsules 03/23/2015 Morphine Sulfate ER Unknown - 10mg Caps ER 12/23/2015 24HR Senna twice a day Unknown - 8.6mg Capsules 08/24/2017 Prednisone 1 dose per month Unknown - 50mg Tablets 08/23/2017 Gabapentin Unknown - 08/23/2017 Amoxicillin/Clavulanate Unknown - Potassium 08/24/2017 875-125mg Tablets Procedures Date Code Description Status 03/24/2018 68431 Est Patient Intermediate Exam Completed 08/25/2017 07701 Est Patient Comprehensive Exam Completed 01/23/2016 45672 Est Patient Comprehensive Exam Completed 07/23/2015 13237 Est Patient Comprehensive Exam Completed 03/24/2015 59891 Est Patient Intermediate Exam Completed 07/22/2014 15612 Est Patient Comprehensive Exam Completed 12/10/2013 93751 Est Patient Comprehensive Exam Completed 07/10/2012 82122 Est Patient Comprehensive Exam Completed 02/10/2011 28674 Est Patient Intermediate Exam Completed 03/12/2010 82774 Determination Of Refractive State Completed 03/12/2010 15474 Est Patient Comprehensive Exam Completed 01/07/2009 03807 Est Patient Comprehensive Exam Completed 10/19/2006 51798 Est Patient Intermediate Exam Completed 01/24/2006 99332 Est Patient Comprehensive Exam Completed 01/06/2006 55605 Est Patient Intermediate Exam Completed 02/12/2004 59337 Determination Of Refractive State Completed 02/12/2004 69330 Est Patient Comprehensive Exam Completed Encounters Type Date Location Provider Dx Diagnosis Office Visit 02/17/2011 Sherri Parra 372.30 Conjunctivitis Unspec 10:10a edel COREY O.D. Office Visit 11/29/2007 Daniel Parra, 373.00 Blepharitis Unspec 10:45a edel COREY M.D. Plan of Treatment 10/24/2018 - Amrit Quinn M.D.H25.813 Combined forms of age-related cataract , bilateralComments:Smoking can increase the risk of developing or worsening any eye related disease, as well as affect your overall health. If you are a smoker, we strongly recommend that you quit.If you are not a smoker, we strongly recommend that you do not start. You have been diagnosed with cataracts. They are limiting your vision, and I am unable to improve you with new glasses. Our next step is to schedule Cataract surgery and all necessary appointments, which Vandana will do for you. We recommend that you write down any questions you may have and bring them to your preoperative appointment so that Dr. Wild answer them for you. If you have any questions or concerns, you can reach Vandana at .Follow up:For preop exam before surgery.H43.813 Vitreous degeneration, bilateralComments:You have a Posterior Vitreous Detachment. If you have any changes in your floaters or flashing lights , please contact this office.
[2018-11-21 10:44] VITALS: BP 148/73
--- NOTE | 2018-11-21 11:08 | UC ---
Skin Complaint HPI - HPI Summary HPI Summary: itchy right side of scalp x 3 days itchy rash , mild redness, bumpy no pain , no numbness no new soap or detergent, no new food or drinks - History of Current Complaint Chief Complaint: UCSkin Time Seen by Provider: 11/21/18 10:25 Stated Complaint: RT SIDE FACE SKIN COMPLAINT Hx Obtained From: Patient Onset/Duration: Gradual Onset, Lasting Days - 3, Still Present Timing: Constant Onset Severity: Moderate Current Severity: Moderate Pain Intensity: 0 Location: Discrete - right side of scalp Aggravating Factor(s): Nothing Alleviating Factor(s): Nothing Associated Signs & Symptoms: Positive: Negative - Allergy/Home Medications Allergies/Adverse Reactions: Allergies Allergy/AdvReac Type Severity Reaction Status Date / Time atorvastatin [From Lipitor] Allergy See Comment Verified 05/18/18 10:24 cortisone Allergy Unknown Verified 09/13/18 11:19 Reaction Details diltiazem Allergy Muscle Ache Verified 05/18/18 10:24 levofloxacin [From Levaquin] Allergy Unknown Verified 05/18/18 10:24 Reaction Details nitroglycerin Allergy Tachycardia Verified 05/18/18 10:24 triamterene Allergy Unknown Verified 05/18/18 10:24 Reaction Details oxycodone AdvReac Severe Vomiting Verified 05/18/18 10:24 PMH/Surg Hx/FS Hx/Imm Hx - Additional Past Medical History Additional PMH: neuropathy, arthritis Respiratory History: Asthma - Surgical History Surgical History: Yes Surgery Procedure, Year, and Place: Hysterectomy, . Cesarian section, . Choleycystectomy, , [facility]. Urethral stretch procedure, . FACE (ABOVE EYEBROW & NOSE) AND LEG- SKIN CANCER REMOVED. HX LUPUS - Family History Known Family History: Positive: Cardiac Disease, Hypertension, Other - strong FHx of LUPUS - Social History Alcohol Use: None Substance Use Type: None Smoking Status (MU): Former Smoker Have You Smoked in the Last Year: No When Did the Patient Quit Smoking/Using Tobacco: ~1984 - Immunization History Most Recent Influenza Vaccination: DOES NOT TAKE IT. Most Recent Tetanus Shot: allergy to Most Recent Pneumonia Vaccination: 2009 Vaccination Up to Date: Yes Review of Systems All Other Systems Reviewed And Are Negative: Yes Constitutional: Positive: Negative Skin: Positive: Rash Eyes: Positive: Negative ENT: Positive: Negative Respiratory: Positive: Negative Musculoskeletal: Positive: Arthralgia, Myalgia Neurological: Positive: Weakness, Paresthesia Is Patient Immunocompromised?: No Physical Exam Triage Information Reviewed: Yes Appearance: Well-Appearing, No Pain Distress, Well-Nourished Vital Signs: Initial Vital Signs Temp 97.7 F 11/21/18 10:37 Pulse 77 11/21/18 10:37 Resp 16 11/21/18 10:37 BP 148/73 11/21/18 10:37 Pulse Ox 97 11/21/18 10:37 Vital Signs Reviewed: Yes Eye Exam: Normal Eyes: Positive: Conjunctiva Clear ENT: Positive: Normal ENT inspection, Hearing grossly normal, Pharynx normal Neck: Positive: Supple, Nontender, No Lymphadenopathy Respiratory: Positive: Chest non-tender, Lungs clear, Normal breath sounds Cardiovascular: Positive: RRR, No Murmur, Pulses Normal Abdominal Exam: Normal Skin: Positive: Rashes - macular rash right scalp Course/Dx - Diagnoses Provider Diagnosis: Dermatitis Discharge - Sign-Out/Discharge Documenting (check all that apply): Patient Departure All imaging exams completed and their final reports reviewed: No Studies - Discharge Plan Condition: Stable Disposition: HOME Prescriptions: Triamcinolone 0.1% CREAM (NF) [Kenalog 0.1% Cream (NF)] 1 applic TOPICAL BID # 60 gm Patient Education Materials: Dermatitis (ED) Referrals: Joy Childers MD [Primary Care Provider] - 7 Days - Billing Disposition and Condition Condition: STABLE Disposition: Home
== END 2018-11-21 11:10 | disposition home or self-care (01) ==
LOC: UCCORT 10:19
DX: L30.9 Dermatitis, unspecified (principal); Z88.1 Allergy status to other antibiotic agents; Z88.5 Allergy status to narcotic agent; Z88.8 Allergy status to other drugs, medicaments and biological substances; Z87.891 Personal history of nicotine dependence
CPT/HCPCS: 99212; G0463

== ENCOUNTER 2019-06-21 10:39 | Emergency (ER) | payer MEDICARE ==
--- OUTSIDE RECORDS SUMMARY | 2019-06-21 11:21 | XMS REPORT | Continuity of Care Document ---
:1940 External Reference #:[id number] Author Name Vernell Juarez NP (transmitted by agent of provider Marti Wyatt) Address [address] [place] [id number] Care Team Providers Name Role Phone Joy Childers MD - Internal Medicine Care Team Information Computer Specialist [phone] Problems Active Problems Provider Date Benign essential hypertension Jayme Miles M.D. Onset: 04/28/2011 Pure hypercholesterolemia Jayme Miles M.D. Onset: 01/27/2012 Chest pain Jayme Miles M.D. Onset: 01/27/2012 Malignant essential hypertension Jayme Miles M.D. Onset: 01/27/2012 Chronic diastolic heart failure Jayme Miles M.D. Onset: 02/15/2013 Localized, primary osteoarthritis Fco Solis M.D. Onset: 05/29/2014 Arthralgia of the lower leg Fco Solis M.D. Onset: 05/29/2014 Social History Type Date Description Comments Sex Unknown ETOH Use Denies alcohol use Tobacco Use Start: Unknown End: Patient is a former quit in 1968 per pt Unknown smoker Recreational Drug Use Denies Drug Use Smoking Status Reviewed: 06/01/19 Patient is a former quit in 1968 per pt smoker Exercise Type/Frequency Used to exercise regularly/daance but unaable to do it now Allergies, Adverse Reactions, Alerts Active Allergies Reaction Severity Comments Date Lipitor rash weakness 08/27/2010 Triamterene leg cramps 08/27/2010 Diltiazem felt poorly , ? worsening fibromyalgia 01/28/2011 Oxycodone Nausea and Vomiting Moderate 07/14/2017 Inactive Allergies NKDA 10/07/2003 Medications Active Medications SIG Qnty Indications Ordering Date Provider Hydrochlorothiazide 1/2 tablet by 60tabs [facility] 25mg mouth every day Thuman, MANAGER OF [employer] 0 Tablets Blood Pressure Monitor 1 machine with 1 1units I10 [facility] Deluxe/Automatic blood pressure Thuman, MANAGER OF [employer] 0 Device cuff adult large size 33-47cm circumferance cuff Nitrostat one sl q5min up to 30tabs R07.9 Jayme Hancock 0.4mg Tablets Sub 3 doses as needed Otis Miles 6 replace every 12 months Labetalol HCL 1po bid 360tabs Jayme Hancock 100mg Tablets Otis Miles 5 Senna 2 by mouth twice a Unknown Capsules day prn 0 Duloxetine HCL 1 po qd Unknown 30mg Caps DR 0 Part Antacid 1 tablet once a Unknown 500mg Chewtabs day 0 [facility] Calcium Citrate +D 1 tablet daily Unknown 0 [id number] Tablets Hydrochlorothiazide 1 by mouth every Unknown 12.5mg day prn 0 Tablets Omeprazole 1 by mouth every Unknown 20mg Capsules DR day 0 Medications Administered in Office Medication SIG Qnty Indications Ordering Provider Date Triamcinolone (Kenalog) Fco Solis M.D. 05/29/2014 Injection Immunizations Description No Information Available Vital Signs Date Vital Result Comment 06/01/2019 1:37pm Height 58 inches 4'10" Weight 197.75 lb with out shoes Heart Rate 64 /min BP Systolic Sitting 136 mmHg Rue lg cuff BP Diastolic Sitting 90 mmHg Rue lg cuff BP Systolic Standing 140 mmHg Rue lg cuff BP Diastolic Standing 90 mmHg Rue lg cuff Respiratory Rate 16 /min BMI (Body Mass Index) 41.3 kg/m2 Ejection Fraction 60-65% date 02/26/19 ECHO 02/15/2019 3:20pm Height 58 inches 4'10" Weight 196.00 lb w/ shoes off Heart Rate 72 /min BP Systolic Sitting 200 mmHg Lue, reg cuff BP Diastolic Sitting 110 mmHg Lue, reg cuff BP Systolic Recheck 198 mmHg la repeat sitting BP Diastolic Recheck 87 mmHg la repeat sitting BMI (Body Mass Index) 41.0 kg/m2 Ejection Fraction 55-60% Results Description No Information Available Procedures Date Code Description Status 06/01/2019 05291 EKG Tracing & Interpretation Completed 02/26/2019 11070 ECHO Transthoracic, Real-Time 2D With Doppler And Color Completed Flow 02/15/2019 10759 EKG Tracing & Interpretation Completed Medical Devices Description No Information Available Encounters Type Date Location Provider Dx Diagnosis Office Visit 02/15/2019 [facility] Jayme Hancock R06.02 Shortness of 3:00p Otis Miles breath I10 Essential (primary) hypertension E78.00 Pure hypercholesterolemia, unspecified I65.23 Occlusion and stenosis of bilateral carotid arteries Assessments Date Code Description Provider 06/01/2019 I10 Essential (primary) hypertension Vernell Juarez NP 06/01/2019 I77.810 Thoracic aortic ectasia Vernell Juarez NP 06/01/2019 I34.0 Nonrheumatic mitral (valve) insufficiency Vernell Juarez NP 02/26/2019 R06.02 Shortness of breath Jayme Miles M.D. 02/26/2019 R06.02 Shortness of breath Traveling ECHO 2 02/15/2019 R06.02 Shortness of breath Jayme Miles M.D. 02/15/2019 I10 Essential (primary) hypertension Jayme Miles M.D. 02/15/2019 E78.00 Pure hypercholesterolemia, unspecified Jayme Miles M.D. 02/15/2019 I65.23 Carotid artery occlusion Jayme Miles M.D. Plan of Treatment Future Appointment(s):07/03/2019 1:00 pm - [facility]ell [facility] at [facility]06/01/2019 - Vernell Juarez NPI10 Essential (primary) hypertensionNew Medication:Hydrochlorothiazide 25 mg - 1/2 tablet by mouth every dayBlood Pressure Monitor Deluxe/Automatic - 1 machine with 1 blood pressure cuff adult large size 33-47cm circumferance cuffFollow up:follow up in 4 weeks with Vernell for re assessment of BP medicationRecommendations:Please start taking Hydrochlorothiazide 12.5mg by mouth daily. your blood pressure was 170/80 today. follow up in 4 weeks. Bring in your BP cuff when you see me next.I77.810 Thoracic aortic [id number] Nonrheumatic mitral (valve) insufficiency Functional Status Description No Information Available Mental Status Description No Information Available Referrals Description No Information Available
[2019-06-21 11:38] VITALS: BP 174/81
--- NOTE | 2019-06-21 12:02 | UC ---
Abdominal Pain Female HPI - HPI Summary HPI Summary: Pt presents with progressive frequency, urgency, burning with urination and increase from baseline incontinence. Denies vaginal discharge, lesions, itching no abdominal pain. no back pain. Pt with previous history of UTI - states feels similar. 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 reviewed - History of Current Complaint Chief Complaint: UCGU Stated Complaint: URINARY COMPLAINT Time Seen by Provider: 06/21/19 12:02 Hx Obtained From: Patient Pain Intensity: 4 Allergies/Adverse Reactions: Allergies Allergy/AdvReac Type Severity Reaction Status Date / Time atorvastatin [From Lipitor] Allergy See Comment Verified 06/21/19 11:33 cortisone Allergy Unknown Verified 06/21/19 11:33 Reaction Details diltiazem Allergy Muscle Ache Verified 06/21/19 11:33 levofloxacin [From Levaquin] Allergy Unknown Verified 06/21/19 11:33 Reaction Details nitroglycerin Allergy Tachycardia Verified 06/21/19 11:33 triamterene Allergy Unknown Verified 06/21/19 11:33 Reaction Details oxycodone AdvReac Severe Vomiting Verified 06/21/19 11:33 Home Medications: Home Medications Ibuprofen TAB* [Advil TAB*] 200 mg PO Q6H PRN 06/21/19 [History Confirmed ] PMH/Surg Hx/FS Hx/Imm Hx Previously Healthy: Yes Endocrine History: Dyslipidemia Cardiovascular History: Hypertension - Surgical History Surgical History: Yes Surgery Procedure, Year, and Place: Hysterectomy, . Cesarian section, . Choleycystectomy, , [facility]. Urethral stretch procedure, . FACE (ABOVE EYEBROW & NOSE) AND LEG- SKIN CANCER REMOVED. HX LUPUS - Family History Known Family History: Positive: Cardiac Disease, Hypertension, Other - strong FHx of LUPUS - Social History Lives: With Family Alcohol Use: None Substance Use Type: None Smoking Status (MU): Former Smoker Have You Smoked in the Last Year: No When Did the Patient Quit Smoking/Using Tobacco: ~1984 - Immunization History Most Recent Influenza Vaccination: DOES NOT TAKE IT. Most Recent Tetanus Shot: allergy to Most Recent Pneumonia Vaccination: 2009 Vaccination Up to Date: Yes Review of Systems All Other Systems Reviewed And Are Negative: Yes Constitutional: Negative: Fever Genitourinary: Positive: Dysuria, Frequency, Urgency. Negative: Vaginal/Penile Burning, Vaginal/Penile Itching, Vaginal/Penile Discharge Physical Exam - Summary Physical Exam Summary: Vital Signs Reviewed: Yes A+Ox3, no distress uses walker at baseline Eyes: Conjunctiva Clear, NAT. EOM intact and full ENT: Hearing grossly normal TM x 2 clear, mmoist, uvula midline, no exudate, no erythema Neck: Positive: Supple Respiratory: Positive: No respiratory distress, No accessory muscle use + CTA throughout no w/r Cardiovascular: RRR nl s1, s2 no m/r CBT <2 sec abd soft + BS nd no guarding, no distension, no CVA Musculoskeletal Exam: LEW x 4 without difficulty Strength Intact, ROM Intact Neurological: Positive: Alert, + sensation throughout Psychological: Positive: Normal Response To child adolescent care Skin: Positive: no rash, no ecchymosis Triage Information Reviewed: Yes Vital Signs: Initial Vital Signs Temp 99 F 06/21/19 11:31 Pulse 74 06/21/19 11:31 Resp 18 06/21/19 11:31 BP 174/81 06/21/19 11:31 Pulse Ox 100 06/21/19 11:31 Abd Pain Female Course/Dx - Course Course Of Treatment: Pt with urinary frequncy, urgency and burning no vaginal symp Vitals reviewed - elevated BP - history of same non toxic appearing,non concerning exam urine with LE and blood will culture abx hydrate declined pyridium - "didn't work before" return precautions reviewed - Differential Dx/Diagnosis Provider Diagnosis: Dysuria Discharge ED - Sign-Out/Discharge Documenting (check all that apply): Patient Departure All imaging exams completed and their final reports reviewed: No Studies - Discharge Plan Condition: Stable Disposition: HOME Prescriptions: Sulfamethox/Trimethoprim DS* [Bactrim DS 800/160 TAB*] 1 tab PO BID #14 tab Patient Education Materials: Urinary Tract Infection in Women (ED) Referrals: Joy Childers MD [Primary Care Provider] - Additional Instructions: - stay well hydrated - drink plenty of non-alcoholic, non caffinated beverages - your urine will be further tested - if you require any changes to your treatment, we will contact you - this usually take 2 days - Contact your primary doctor to arrange a follow-up appointment next week. Contact your doctor or return with questions or concerns - Take your antibiotics exactly as prescribed until gone - Okay to alternate ibuprofen (Advil, Motrin) and Tylenol every 3 hours for pain. Take with food - Call your doctor or return with questions or concerns. If you have fevers, vomiting, uncontrolled pain, abdominal pain or other concerns it is recommended you go to the emergency department for further evaluation and treatment - Billing Disposition and Condition Condition: STABLE Disposition: Home
== END 2019-06-21 12:26 | disposition home or self-care (01) ==
LOC: UCCORT 10:39
DX: R30.0 Dysuria (principal); R39.15 Urgency of urination; R35.0 Frequency of micturition; I10 Essential (primary) hypertension; Z88.1 Allergy status to other antibiotic agents; Z88.5 Allergy status to narcotic agent; Z88.8 Allergy status to other drugs, medicaments and biological substances; Z87.891 Personal history of nicotine dependence
CPT/HCPCS: 81003; 87086; 99212; G0463